=== PATIENT | male | born 1975 | race Caucasian/White ===

== ENCOUNTER → 2018-09-06 | Outpatient (CLI) | payer OTHER ==
--- NOTE | 2018-09-06 16:28 | REP ---
Clinical: Cardiomegaly. Technique: Axial noncontrast images from the thoracic inlet to the upper abdomen with coronal and sagittal re-formations. Comparison: None. Findings: The bilateral lung quiroz are well-aerated, symmetric and clear. No consolidation, significant nodule, or mass lesion. No pleural effusion. No pneumothorax. Tracheobronchial tree is patent. No obvious adenopathy. The mediastinum demonstrates normal thoracic aorta and heart/pericardium. No cardiomegaly is appreciated. Musculoskeletal structures are intact. Impression: Normal noncontrast chest CT. Electronically Signed by Evans Smith MD 09/06/2018 04:19 P
== END ==
LOC: M RAD 15:53
PROVIDERS: ATTEND Physician Assistant
DX: I51.7 Cardiomegaly (principal)

== ENCOUNTER → 2020-07-30 | Outpatient (CLI) | payer OTHER | LOC: M LABSMTC 10:33 | PROVIDERS: ATTEND Family Medicine | DX: Z20.822 Contact with and (suspected) exposure to COVID-19 (principal) | CPT/HCPCS: C9803; U0003 ==